=== PATIENT | female | born 1960 | race Caucasian/White ===

== ENCOUNTER 2016-09-09 13:08 | Day surgery (SDC) | payer MEDICAID, OTHER ==
[2016-09-09] VITALS (20 sets, daily range): BP systolic 97–133; BP diastolic 52–66; PULSE 56–76; RESP 14–20; Ht 162.6 cm; Wt 78.0 kg
[~2016-09-09] VITALS: Ht 162.6 cm; Wt 78.0 kg
[~2016-09-09 13:08] MED LIST: CEFAZOLIN 2 GM/50 ML (PMX) 50 ML IVPB ONE; LIDOCAINE 2% (SDV) 5 ML INJ ONE; ROCURONIUM 50 MG INJ ONE; SOD CHLORIDE 0.9% 1,000 ML IV SCH
[2016-09-09] MEDS ORDERED: PROPOFOL 20 ML ONE (14:37)
[2016-09-09] MEDS ORDERED: MIDAZOLAM 1 MG/ML 2 ML INJ ONE (14:37)
[2016-09-09] MEDS ORDERED: METOCLOPRAMIDE 10 MG INJ ONE (14:38)
[2016-09-09] MEDS ORDERED: ATOR20TA38 PO (14:38)
[2016-09-09] MEDS ORDERED: ASPI81TA3 PO (14:38)
[2016-09-09] MEDS ORDERED: CEFAZOLIN 1 GM INJ ONE (14:41)
[2016-09-09] MEDS ORDERED: GLYCOPYRROLATE 0.4 MG INJ ONE (14:52)
[2016-09-09] MEDS ORDERED: ROPIVACAINE 0.5 % 30 ML VIAL ONE (14:52)
[2016-09-09] MEDS ORDERED: NEOSTIGMINE 3 MG/3 ML SYRINGE ONE (14:52)
[2016-09-09] MEDS ORDERED: ONDANSETRON 4 MG INJ ONE (15:01)
[2016-09-09] MEDS ORDERED: MEPERIDINE 25 MG INJ IV PRN ×2 (15:30)
[2016-09-09] MEDS ORDERED: FENTAnyl 50 MCG/ML VIAL IV PRN ×2 (15:30)
[2016-09-09] MEDS ORDERED: LABETALOL HCL 20MG INJ IV PRN (15:30)
[2016-09-09] MEDS ORDERED: METOCLOPRAMIDE 10 MG INJ IV PRN ×2 (15:30)
[2016-09-09] MEDS ORDERED: ONDANSETRON 4 MG INJ IV PRN ×3 (15:30→16:00)
[2016-09-09] MEDS ORDERED: HYDROmorphONE (0.2 MG/ML) 10ML SYG IV PRN ×6 (15:30)
[2016-09-09] MEDS ORDERED: EPHEDrine SULFATE 50 MG/5 ML SYG IV PRN (15:30)
[2016-09-09] MEDS ORDERED: hydrALAzine 20 MG INJ IV PRN (15:30)
[2016-09-09] MEDS ORDERED: DIPHENHYDRAMINE 50 MG INJ IV PRN ×2 (15:30)
[2016-09-09] MEDS ORDERED: OXYCODONE/ACETAMINOPHEN (5/325) TAB PO PRN ×2 (15:30)
[2016-09-09] MEDS ORDERED: morphine 4 MG/ML VIAL IV PRN (16:00)
[2016-09-09] MEDS ORDERED: ACETAMINOPHEN/CODEINE #3 TAB PO PRN (16:00)
[2016-09-09] MEDS ORDERED: ACETAMINOPHEN 1000MG/100ML IV 100 ML IVPB PRN (16:00)
[2016-09-09] MEDS ORDERED: HYDROmorphONE 2 MG/ML SYG ONE (16:01)
--- NOTE | 2016-09-09 17:19 | HP ---
Date/Time of Note Date/Time of Note DATE: 09/09/16 TIME: 17:13 Assessment/Plan VTE Prophylaxis VTE Prophylaxis Intervention: anti-embolic stocking Lines/Catheters IV Catheter Type (from Nrsg): Saline Lock HPI/ROS Admit Date/Time Admit Date/Time Hx of Present Illness 56 y female was seen by Dr. Liu as an out patient for symtomatic gall stones. She was brought in to the hosp for lap cholecystectomy. Post op had significant pain & therefore being admitted for further eval & management. ROS Constitutional: nausea Gastrointestinal: nausea, pain PMH/Family/Social Social History Smoking Status: Never smoker Exam/Review of Systems Vital Signs Vitals Vital Signs Date Time Temp Pulse Resp B/P Pulse Ox O2 Delivery O2 Flow Rate FiO2 09/09/16 17:01 58 17 105/54 97 Nasal Cannula 2.0 09/09/16 16:08 97.8 Medications Medications Current Medications Ondansetron HCl (Zofran Inj) 4 mg Q6H PRN IV NAUSEA AND/OR VOMITING; Start 09/09 at 16:00 Morphine Sulfate (morphine) 2 mg Q1H PRN IV PAIN; Start 09/09/16 at 16:00 Acetaminophen/ Codeine Phosphate 1 tab 1 tab Q6H PRN PO PAIN; Start 09/09/16 at 16:00 Acetaminophen 100 ml @ 400 mls/hr Q6H PRN IVPB PAIN; Start 09/09/16 at 16:00 Potassium Chloride/Dextrose/ Sod Cl (D5-1/2ns + KCl 20 Meq) 1,000 ml @ 125 mls/ hr Q8H IV ; Start 09/09/16 at 15:42 BELEM PICKARD MD Sep 09, 2016 17:19
[2016-09-09] MEDS: D5W-0.45 NACL + KCL 20 MEQ 1,000 ML IV SCH (17:48)
[2016-09-10] MEDS: D5W-0.45 NACL + KCL 20 MEQ 1,000 ML IV SCH ×2 (00:04→09:01)
[2016-09-10 09:07] VITALS: BP 124/65; RESP 18
--- NOTE | 2016-09-10 13:25 | PN ---
Date/Time of Note Date/Time of Note DATE: 09/10/16 TIME: 13:24 Assessment/Plan VTE Prophylaxis VTE Prophylaxis Intervention: SCD's Lines/Catheters IV Catheter Type (from Nrs): Peripheral IV Urinary Cath still in place: No Assessment/Plan Chief Complaint/Hosp Course Patient tolerates clear liquid diet well denies any nausea and vomiting, active bowel sounds, no flatus, able to ambulate in the hallway, mild to moderate pain. Problems: Assessment/Plan -Symptomatic gallstones, status post laparoscopic cholecystectomy. Exam/Review of Systems Vital Signs Vitals Vital Signs Date Time Temp Pulse Resp B/P Pulse Ox O2 Delivery O2 Flow Rate FiO2 09/10/16 09:07 98.6 65 18 124/65 97 09/09/16 18:45 Nasal Cannula 2.0 Intake and Output 09/09/16 09/09/16 09/10/16 15:00 23:00 07:00 Intake Total 1400 ml 1815 ml Output Total 5 ml Balance 1395 ml 1815 ml Exam Constitutional: alert, oriented Neck: supple Respiratory: normal air movement Cardiovascular: nl pulses Gastrointestinal: non-tender, other (Status post surgery), soft Extremities: normal pulses Neurological: nl mental status Medications Medications Current Medications Ondansetron HCl (Zofran Inj) 4 mg Q6H PRN IV NAUSEA AND/OR VOMITING Last administered on 09/09/16 17:46; Admin Dose 4 MG; Start 09/09/16 at 16:00 Morphine Sulfate (morphine) 2 mg Q1H PRN IV PAIN Last administered on 09/09/16 21:43; Admin Dose 2 MG; Start 09/09/16 at 16:00 Acetaminophen/ Codeine Phosphate 1 tab 1 tab Q6H PRN PO PAIN; Start 09/09/16 at 16:00 Acetaminophen 100 ml @ 400 mls/hr Q6H PRN IVPB PAIN; Start 09/09/16 at 16:00 Potassium Chloride/Dextrose/ Sod Cl (D5-1/2ns + KCl 20 Meq) 1,000 ml @ 125 mls/ hr Q8H IV Last administered on 09/10/16 09:01; Admin Dose 125 MLS/HR; Start 09/09/16 at 15:42 ALEX CRANE Sep 10, 2016 13:25
[2016-09-10] MEDS ORDERED: ACET1TAB40 PO (15:07)
[2016-09-10 16:00] VITALS: PULSE 75; RESP 18
--- NOTE | 2016-09-10 16:54 | RADRPT ---
Vent Rate: 68 bpm RR Interval: 0 msec CO Interval: 158 msec QRS Duration: 84 msec QT Interval: 412 msec QTC Interval: 438 msec P-R-T [place]: 61 - 33 - 33 degrees Normal sinus rhythm Normal ECG Electronically Signed By: Max Ambrocio [id number]
--- NOTE | 2016-09-10 17:15 | DS ---
Date/Time of Note Date/Time of Note DATE: 09/10/16 TIME: 17:13 Discharge Summary Admission/Discharge Info Admit Date/Time Sep 09, 2016 at 15:43 Discharge Date/Time Discharge Diagnosis -Symptomatic gallstones, status post laparoscopic cholecystectomy. Patient Condition: Good Hx of Present Illness 56 y female was seen by Dr. Liu as an out patient for symtomatic gall stones. She was brought in to the hosp for lap cholecystectomy. Post op had significant pain & therefore being admitted for further eval & management. Hospital Course -Symptomatic gallstones, status post laparoscopic cholecystectomy. Patient was given Zofran for nausea and Tylenol 3 and morphine for pain. Diet was advanced per surgery. She is able to ambulate, denies any nausea vomiting and patient condition improved and she will be discharged home today. Home Meds Reported Medications Atorvastatin Calcium* (Atorvastatin Calcium*) 20 Mg Tablet, 10 MG PO QHS, #30 TAB 09/09/16 Aspirin* (Aspirin* Chew) 81 Mg Tab.chew, 81 MG PO DAILY, TAB.CHEW 09/09/16 Follow-up Plan Follow-up with Dr. Liu in 1-2 weeks Primary Care Provider [facility] Time spent on discharge: < 30 minutes ALEX CRANE Sep 10, 2016 17:15
--- NOTE | 2016-09-22 09:02 | OPR ---
DATE OF OPERATION: 09/09/2016 SURGEON: Austin Liu MD. TRAILHEAD CONSTRUCTION WORKER: Dr. Moore. ANESTHESIOLOGIST: [____]. PREOPERATIVE DIAGNOSIS: Symptomatic cholelithiasis. POSTOPERATIVE DIAGNOSIS: Chronic cholecystitis. OPERATION PERFORMED: Laparoscopic cholecystectomy. ANESTHESIA: General. INDICATION FOR PROCEDURE: The patient is a 56-year-old female who presented with chronic right upper quadrant pain. She was evaluated with ultrasound and cholelithiasis was confirmed with a stone impacted in the neck of the gallbladder. She was counseled as to the risks versus benefits of cholecystectomy, she consented and was scheduled for surgery. OPERATIVE PROCEDURE: The patient was brought to the operating theatre and placed under general endotracheal tube anesthesia. The abdomen was prepped and draped in the usual sterile fashion. Approximately, a 2 cm incision was made in the midline just above the umbilicus. The subcutaneous tissue was dissected with cautery down to the anterior rectus sheath, 0 Vicryl stay suture were placed on either side of the linea alba. The linea alba was incised and the abdomen was entered without difficulty. The Batres trocar was then placed in standard fashion. The abdomen was insufflated to a pressure approximately 14 mmHg with carbon dioxide. The laparoscope was introduced. Attention was directed to the right upper quadrant, where a very distended bowel stained gallbladder with omental adhesions was identified. The 3 accessory ports were placed under direct vision in the standard fashion. Through the lateral port site, the gallbladder was grasped at the fundus and it was retracted cephalad with a combination of blunt dissection and cautery, the adhesions were taken down. A second grasper was then brought through the remaining lateral port site and placed in the neck of the gallbladder. The gallbladder was retracted cephalad and lateral. The peritoneum overlying the gallbladder was then incised, both medially and laterally to facilitate mobilization of the triangle of [place]. With meticulous dissection the cystic duct was isolated. Two clips were placed it across it distally, it was then transected with the endovascular CODY stapler at its juncture with the neck of the gallbladder. Subsequently, the cystic artery was isolated, two clips were placed across it distally and the artery was then transected with endovascular CODY stapler. The gallbladder was then dissected out of the gallbladder fossa using cautery. The final transection irrigation and inspection took place, minimal bleeding was controlled with cautery. The gallbladder was then transected. The laparoscope was removed through the 12 mm subcostal port site and the gallbladder was withdrawn from the abdomen using the gallbladder bag, through the umbilical port site. Batres trocar was placed back into the supraumbilical port site. The abdomen was re-insufflated, the laparoscope was placed back into the umbilical port site. Final irrigation and inspection took place, there was no evidence of bleeding. The 3 accessory ports were then removed under direct vision, again there was no evidence of bleeding. Finally, the umbilical port was removed. The midline local fascia was the reapproximated with #0 Prolene sutures in figure of eight fashion. All wounds were irrigated with Betadine. The skin incisions were reapproximated with skin arturo. The patient tolerated the procedure well. The estimated blood loss was 20 mL. There were no complications. The patient was transported in stable condition to the recovery room. Dictated By: Austin Liu MD /lizeth/[email or web address] /Document#: [id number]
== END 2016-09-10 20:32 | disposition home or self-care (01) ==
LOC: SDS 13:08 → MS1 15:43 → UNDOADMIN 15:43 → MS1 17:15 → SDS 22:01 → UNDODISIN 09-10 20:32
PROVIDERS: ATTEND Surgery Surgical Oncology
DX: K80.10 Calculus of gallbladder with chronic cholecystitis without obstruction (principal); E78.5 Hyperlipidemia, unspecified
CPT/HCPCS: 47562; 88304; 93005; J0690; J1170; J2250; J2270; J2405; J2765; J2795; J3480; Z7512; Z7610; J2710